=== PATIENT | female | born 1955 | race Caucasian/White ===

== ENCOUNTER 2021-02-18 23:12 | Observation (INO) | payer OTHER ==
[2021-02-19] MEDS ORDERED: Ativan 1 MG PO PRN ×2 (03:56→09:45)
[2021-02-19] MEDS ORDERED: TYLENOL EXTRA STRENGTH 500 MG PO PRN (03:57)
[2021-02-19] MEDS ORDERED: REMDESIVIR 200 MG in Sodium Chloride 0.9% 250 ML 250 ML IV ONE (04:00)
[2021-02-19] MEDS ORDERED: Sodium Chloride 0.9% 250 ML 250 ML IV ONE (04:08)
[2021-02-19] MEDS ORDERED: REMDESIVIR IV ONE (04:08)
[2021-02-19 06:07] LABS: Hematocrit 37.4 % (35-47); Mean Corpuscular Hemoglobin 30.2 pg (26-32); Mean Corpuscular Hgb Concent. 32.1 g/dl (32-36); Mean Platelet Volume 11.5 fl (7.5-11.0); Platelet Count 136 K/mm3 (150-450); Red Blood Count 3.98 M/mm3 (4.1-5.4); Red Cell Distribution Width 14.8 % (11.5-14.0)
[2021-02-19] MEDS: Glucophage 500 MG PO SCH ×2 (08:06→17:07)
[2021-02-19] MEDS: SYNTHROID 100 MCG PO SCH (08:06)
[2021-02-19 08:36] LABS: ALBUMIN 2.9 g/dL (3.5-5.0); ALKALINE PHOSPHATASE 73 U/L (38-126); ANION GAP 10.1 MEQ/L (5-15); BLOOD UREA NITROGEN 8 mg/dL (7-17); CHLORIDE 99 mmol/L (98-107); Calcium 7.1 mg/dL (8.4-10.2); Carbon Dioxide 31 mmol/L (22-30); Creatinine 1 0.78 mg/dL (0.52-1.04); EST GLOMERULAR FILTRATION RATE > 60.0 ML/MIN; Glucose 226 mg/dL (74-106); Potassium 3.5 mmol/L (3.5-5.1); SGOT/AST 130 U/L (14-36); SGPT/ALT 37 U/L (0-35); SODIUM 136 mmol/L (137-145); Total Protein 5.9 g/dL (6.3-8.2)
[2021-02-19] MEDS ORDERED: Zofran 4 MG/2 ML VIAL IV PRN (08:47)
[2021-02-19] MEDS ORDERED: HUMALOG SQ PRN (09:28)
[2021-02-19] MEDS: DECADRON 10MG INJ. IV SCH (09:52)
[2021-02-19] MEDS: Zestril 20 MG*** 20 MG, hydroDIURIL 25 MG*** 12.5 MG PO SCH ×2 (09:52)
[2021-02-19] MEDS: OLUMIANT PO SCH (09:53)
[2021-02-19] MEDS: TENORMIN 50 MG PO SCH (09:54)
[2021-02-19] MEDS: ENOXAPARIN SODIUM SQ SCH (09:54)
[2021-02-19] MEDS: VANCOMYCIN HCL CAPSULE PO SCH ×2 (09:55→21:23)
[2021-02-19] MEDS ORDERED: Effexor XR 75 MG PO SCH (10:00)
[2021-02-19] MEDS: ZOCOR 20MG PO SCH (21:23)
[2021-02-19] MEDS: Effexor XR 75 MG PO SCH (21:23)
[2021-02-20 05:21] LABS: 027 TOX PROD PRESUMPTIVE NEGATIVE (NEGATIVE); TOXIGENIC C. DIFF ORG NEGATIVE (NEGATIVE)
[2021-02-20 06:55] LABS: Hematocrit 41.5 % (35-47); Hemoglobin 13.1 gm/dl (12.0-16.0); Mean Cell Volume 94.7 fl (78-100); Mean Corpuscular Hemoglobin 29.9 pg (26-32); Mean Corpuscular Hgb Concent. 31.6 g/dl (32-36); Platelet Count 150 K/mm3 (150-450); Red Blood Count 4.38 M/mm3 (4.1-5.4); Red Cell Distribution Width 14.7 % (11.5-14.0); White Blood Count 6.9 K/mm3 (4.0-10.5)
[2021-02-20] MEDS: SYNTHROID 100 MCG PO SCH (07:59)
[2021-02-20] MEDS: REMDESIVIR 100 MG in Sodium Chloride 0.9% 100 ML BAG 100 ML IV SCH (07:59)
[2021-02-20] MEDS: Glucophage 500 MG PO SCH (07:59)
[2021-02-20] MEDS: DECADRON 10MG INJ. IV SCH (09:00)
[2021-02-20] MEDS: OLUMIANT PO SCH (09:00)
[2021-02-20] MEDS: Zestril 20 MG*** 20 MG, hydroDIURIL 25 MG*** 12.5 MG PO SCH ×2 (09:00)
[2021-02-20] MEDS: Effexor XR 75 MG PO SCH ×2 (09:00→21:41)
[2021-02-20] MEDS: ENOXAPARIN SODIUM SQ SCH (09:01)
[2021-02-20] MEDS: NICOTINE PATCH 7MG TD SCH (09:02)
[2021-02-20] MEDS: VANCOMYCIN HCL CAPSULE PO SCH (09:02)
[2021-02-20] MEDS: TENORMIN 50 MG PO SCH (09:02)
[2021-02-20] MEDS: Glucotrol 5 MG PO SCH (11:30)
[2021-02-20] MEDS: ZOCOR 20MG PO SCH (21:41)
[2021-02-21 05:49] LABS: Hematocrit 39.2 % (35-47); Hemoglobin 12.5 gm/dl (12.0-16.0); Mean Cell Volume 93.8 fl (78-100); Mean Corpuscular Hemoglobin 29.9 pg (26-32); Mean Corpuscular Hgb Concent. 31.9 g/dl (32-36); Platelet Count 158 K/mm3 (150-450); Red Blood Count 4.18 M/mm3 (4.1-5.4); Red Cell Distribution Width 14.4 % (11.5-14.0); White Blood Count 8.2 K/mm3 (4.0-10.5)
[2021-02-21 06:03] LABS: ALBUMIN 2.9 g/dL (3.5-5.0); ALKALINE PHOSPHATASE 76 U/L (38-126); ANION GAP 10.2 MEQ/L (5-15); BLOOD UREA NITROGEN 11 mg/dL (7-17); CHLORIDE 96 mmol/L (98-107); Calcium 7.6 mg/dL (8.4-10.2); Carbon Dioxide 33 mmol/L (22-30); Creatinine 1 0.56 mg/dL (0.52-1.04); EST GLOMERULAR FILTRATION RATE > 60.0 ML/MIN; Glucose 124 mg/dL (74-106); Potassium 3.5 mmol/L (3.5-5.1); SGOT/AST 100 U/L (14-36); SGPT/ALT 39 U/L (0-35); SODIUM 136 mmol/L (137-145); Total Protein 5.9 g/dL (6.3-8.2)
[2021-02-21] MEDS: SYNTHROID 100 MCG PO SCH (06:50)
[2021-02-21] MEDS: Glucotrol 5 MG PO SCH (08:07)
[2021-02-21] MEDS: REMDESIVIR 100 MG in Sodium Chloride 0.9% 100 ML BAG 100 ML IV SCH (08:41)
[2021-02-21] MEDS: DECADRON 10MG INJ. IV SCH (08:41)
[2021-02-21] MEDS: NICOTINE PATCH 7MG TD SCH (08:43)
[2021-02-21] MEDS: ENOXAPARIN SODIUM SQ SCH (08:43)
[2021-02-21] MEDS: Effexor XR 75 MG PO SCH (08:43)
[2021-02-21] MEDS: OLUMIANT PO SCH (08:43)
[2021-02-21] MEDS: Zestril 20 MG*** 20 MG, hydroDIURIL 25 MG*** 12.5 MG PO SCH ×2 (08:47)
[2021-02-21] MEDS: TENORMIN 50 MG PO SCH (09:08)
--- NOTE | 2021-02-21 11:56 | HP ---
CHIEF COMPLAINT: Coughing, shortness of breath. Diarrhea for several months. The cough has been perhaps for one week. HISTORY OF PRESENT ILLNESS: She has been weak. She almost passed out on the job going down stairs. Apparently she works two jobs. Said she is unemployed but she is recently employed at two places at least she is physically active. She called in stated she could not get her breath and they told her to come to work and go see doctor later. She started feel bad and tried to get her into the emergency room where she tested positive for COVID. She is from [place], [place]. They are were full at [facility] and full at [facility] so called us up about 1 o'clock and we accepted her. She is 65 years old. She smokes one cigarette a day. There is no lung disease that she knows of. No heart disease. However, she has had diarrhea for months and finally got in to see a physician and tested her and she had clostridium difficile and was put on Flagyl. She said that does not seem to work very well and he put her on another medicine which I assume is vancomycin although she does not have it and will start her on vancomycin here and wait for another test. She has no blood in the stool just diarrhea ten times a day. MEDICATIONS: Venlafaxine 150, atenolol 50, hydrochlorothiazide I assume 25 a day, atorvastatin 20, metformin 500 b.i.d., Synthroid 75 q.d. and probably vancomycin. ALLERGIES: IODINE. PAST MEDICAL HISTORY: COVID pneumonia, clostridium difficile gastritis symptomatic, diarrhea, diabetes, hypertension. The patient suffers from depression which is controlled with her present venlafaxine 150 once a day. She has mild hypertension and takes atenolol 50 a day. She did not tell us that she has diabetes. She is on metformin 500 a day twice a day. I have to keep in mind that is a possible cause of her chronic diarrhea. PAST SURGICAL HISTORY: Appendectomy. Joint replacement. PHYSICAL EXAMINATION: She is alert, orientated, looks like a fairly sturdy person if she was not sick and short of breath. VITAL SIGNS: Temperature 99F, blood pressure 120/50. O2 saturation at 2 liters is 94%, drops with walking. HEENT: Pupils equal and reactive to light. NECK: Supple without adenopathy. CHEST: Clear. CVS: Regular rate. No murmurs or gallops. ABDOMEN: Soft, obese moderately. No masses or organomegaly. Bowel sounds are regular. EXTREMITIES: Fair pulses. No edema. LAB DATA AND TESTS: I do not see a D-dimer. IMPRESSION: The patient has acute COVID, clostridium difficile, gastritis. Chest x-ray suggests COVID pneumonia done in [place]. Potassium is slightly low and she is getting potassium here, IV fluids and Zofran. Will treat her with the usual medicines of Remdesivir, Decadron, antibodies, anticoagulate her. Vancomycin for clostridium difficile at this time, check her stool for clostridium difficile. Get a D-dimer, CBC, repeat clostridium difficile test. She received some Ativan for anxiety. Really if she says she is depressed still her antidepressant could be increased to 300 mg. I will talk to her about that later today. PROGNOSIS: Fair.
--- NOTE | 2021-02-22 15:04 | DS ---
ADMISSION DIAGNOSES: 1) COVID pneumonia. 2) Dehydration. 3) Gastritis with diarrhea. 4) History of diabetes mellitus. 5) History of hypertension. 6) Hypoxia. DISCHARGE DIAGNOSES: 1) COVID PNEUMONIA. 2) CLOSTRIDIUM DIFFICILE GASTRITIS, RESOLVED. 3) HYPERTENSION, CONTROLLED. 4) DIABETES MELLITUS IN RECESSION, A1C NORMAL. HOSPITAL COURSE: A 65-year-old white female who has been struggling. She just got three jobs, could not get in to see a doctor. She is extremely fatigued from the diarrhea up to ten times a day when she was diagnosed with clostridium difficile and started on Flagyl. It just started working when she came into the emergency room short of breath and coughing. No history of coronary artery disease. She lives alone but her daughter lives very close by. She lives in a duplex and knows the neighbors well. Normally, she states she is pretty healthy except for chronic diseases which had been under control although she has had trouble finding a new physician. On admission, her O2 requirement went up to 5 liter for a few days and rapidly came down. Her strength came back. She is able to walk to the bathroom after three days. Her chest cleared up. Her A1C was like 5.4. The last D-dimer was 490. White count 6.9, hemoglobin 11. Her clostridium difficile toxin was negative and clostridium difficile organism was negative. However, I think it was probably positive several weeks and she had taken some Metformin and I think probably she has a prescription for vancomycin that she had just started. We continued the vancomycin and she had no more diarrhea and the tests were negative so we will discontinue it. Because her A1C is 5.6 now I advised her to stay on her diet, stop her diabetes medicines. Once again, the Metformin could have been causing the diarrhea and we stopped it, will keep that in mind if she has to restart it. Interestingly when she came in her white count was 3. She was in sinus rhythm. Chest x-ray was typical for COVID pneumonia. She was brought here from [place] due to all of the hospitals between [place] and [place] being filled at least the COVID units. She is alert and orientated, intelligent. She has a daughter who is a nurse who lives close by will come down and pick her up and help with her medicines and set up her oxygen. She should isolate for seven days. 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 She had quit smoking while she is here. She does smoke except two or three cigarettes a day and she was put on a patch. See her doctor in follow up in two weeks. I did give her my number in case she has any questions about her discharge situation. PROGNOSIS: Good.
== END 2021-02-21 14:34 | disposition home or self-care (01) ==
LOC: MED SURG 02-19 02:17
PROVIDERS: ADMIT Family Medicine; ATTEND Family Medicine
DX: U07.1 COVID-19 (principal); J12.82 Pneumonia due to coronavirus disease 2019; K29.70 Gastritis, unspecified, without bleeding; B96.7 Clostridium perfringens [C. perfringens] as the cause of diseases classified elsewhere; I10 Essential (primary) hypertension; E11.9 Type 2 diabetes mellitus without complications; R53.83 Other fatigue; R05.9 Cough, unspecified; F32.A Depression, unspecified; Z79.899 Other long term (current) drug therapy; E86.0 Dehydration; R09.02 Hypoxemia
CPT/HCPCS: 36415; 80053; 83036; 85027; 85379; 87493; 93268; 94762; G0378; J1100; J1650; J2405; A9270-GY